=== PATIENT | male | born 1995 | race Caucasian/White ===

== ENCOUNTER 2016-12-25 11:39 | Emergency (ER) | payer SELFPAY ==
[2016-12-25 12:18] LABS: HEMOGLOBIN 14.5 gm/dl (14.0-17.5); RED BLOOD COUNT 4.85 M/UL (4.20-5.50); WHITE BLOOD COUNT 6.8 K/UL (4.5-11.0)
[2016-12-25 12:39] LABS: BUN/CREATININE RATIO 11 (0-10)
== END 2016-12-25 15:55 | disposition home or self-care (01) ==
LOC: ER1 11:39
PROVIDERS: Family Medicine
DX: N20.2 Calculus of kidney with calculus of ureter (principal)
CPT/HCPCS: 36415; 80053; 81001; 83690; 85025; 96374; 96375; 96376; 99284; J1885; J2270; J2405